=== PATIENT | male | born 1955 | race Caucasian/White ===

== ENCOUNTER 2021-02-17 10:29 | Outpatient (REF) | payer OTHER, SELFPAY ==
[2021-02-17 14:59] LABS: Influenza A PCR NEGATIVE (Negative); Influenza B PCR NEGATIVE (Negative); Resp Syncy Virus RNA Qual PCR NEGATIVE (Negative); SARS COV2 PCR INHOUSE POSITIVE (Negative)
== END 2021-02-17 10:30 | disposition home or self-care (01) ==
LOC: HO.LAB 10:29
PROVIDERS: Visit Provider Family Medicine
DX: Z20.822 Contact with and (suspected) exposure to COVID-19 (principal)
CPT/HCPCS: 0241U

== ENCOUNTER 2021-10-16 07:14 | Outpatient (REF) | payer OTHER, SELFPAY ==
[2021-10-16 07:56] LABS: Hemoglobin 14.4 g/dl (14.0-18.0); Mean Corpuscular HGB Conc 33.5 g/dl (31.0-36.0); Mean Corpuscular Hemoglobin 28.4 pg (27.0-33.0); Mean Corpuscular Volume 84.8 fL (80.0-98.0); Mean Platelet Volume 9.1 fL (9.4-12.4); Platelet Count 262 X10*3/uL (160-400); Red Blood Count 5.07 X10*6/uL (4.60-5.80); Red Cell Distribution Width 12.8 % (11.0-16.0); White Blood Count 6.8 X10*3/uL (4.8-10.8)
[2021-10-16 08:05] LABS: Estimated Average Glucose 111 mg/dL; Hemoglobin A1C 141.4243 umol/L; Hemoglobin A1c % 5.5 %
[2021-10-16 08:29] LABS: Alanine Aminotransferase 19 U/L (0-40); Albumin Level 4.3 g/dL (3.5-5.0); Alkaline Phosphatase 57 U/L (39-117); Anion Gap 13 (12-20); Aspartate Amino Transferase 21 U/L (5-37); Blood Urea Nitrogen 19 mg/dL (9-16); Calcium 9.6 mg/dL (8.4-10.2); Carbon Dioxide 30 mmol/L (22-29); Chloride 104 mmol/L (96-108); Cholesterol 185 mg/dL; Estimated Glomerular Filt Rate > 60; Glucose Fasting 100 mg/dL (60-99); HDL Cholesterol 58 mg/dL; Iron 138 mcg/dL (45-160); LDL Cholesterol Calculated 110 mg/dl; Percent Iron Saturation 36 % (15-50); Potassium 4.9 mmol/L (3.3-5.1); Sodium 142 mmol/L (135-145); Total Iron Binding Capacity 382 mcg/dL (228-428); Total Protein 7.1 g/dL (6.5-8.0); Triglycerides 87 mg/dL; Unsaturated Iron Binding 244 ug/dL
== END 2021-10-16 07:15 | disposition home or self-care (01) ==
LOC: HO.LAB 07:14
PROVIDERS: PCP Physician Assistant; Visit Provider Physician Assistant
DX: Z12.5 Encounter for screening for malignant neoplasm of prostate (principal); E78.5 Hyperlipidemia, unspecified; D50.9 Iron deficiency anemia, unspecified; K62.5 Hemorrhage of anus and rectum
CPT/HCPCS: 36415; 80053; 80061; 83036; 83540; 84153; 84443; 85027

== ENCOUNTER 2022-10-14 08:41 | Outpatient (REF) | payer BC, SELFPAY ==
[2022-10-14 11:27] LABS: Hematocrit 41.3 % (42.0-52.0); Hemoglobin 13.8 g/dl (14.0-18.0); Mean Corpuscular HGB Conc 33.4 g/dl (31.0-36.0); Mean Corpuscular Hemoglobin 28.9 pg (27.0-33.0); Mean Corpuscular Volume 86.6 fL (80.0-98.0); Mean Platelet Volume 9.4 fL (9.4-12.4); Platelet Count 279 X10*3/uL (160-400); Red Blood Count 4.77 X10*6/uL (4.60-5.80); White Blood Count 4.2 X10*3/uL (4.8-10.8)
[2022-10-14 12:27] LABS: Prostate Specific Antigen Scr 0.96 ng/mL (<0.05-4.0)
[2022-10-14 13:21] LABS: Alanine Aminotransferase 17 U/L (0-40); Alkaline Phosphatase 52 U/L (39-117); Anion Gap 11 (12-20); Aspartate Amino Transferase 21 U/L (5-37); Bilirubin Total 0.6 mg/dL (0.0-1.0); Blood Urea Nitrogen 19 mg/dL (9-16); Calcium 9.6 mg/dL (8.4-10.2); Carbon Dioxide 28 mmol/L (22-29); Chloride 104 mmol/L (96-108); Cholesterol 226 mg/dL (<200); Estimated Glomerular Filt Rate > 60; Glucose Fasting 97 mg/dL (60-99); HDL Cholesterol 67 mg/dL (>40); LDL Cholesterol Calculated 150 mg/dL (<100); Potassium 4.2 mmol/L (3.3-5.1); Sodium 139 mmol/L (135-145); Total Protein 6.7 g/dL (6.5-8.0); Triglycerides 49 mg/dL (<150)
== END 2022-10-14 08:42 | disposition home or self-care (01) ==
LOC: HO.WFDLDS 08:41
PROVIDERS: Visit Provider Physician Assistant
DX: Z12.5 Encounter for screening for malignant neoplasm of prostate (principal); E78.2 Mixed hyperlipidemia
CPT/HCPCS: 36415; 80053; 80061; 84153; 85027

== ENCOUNTER 2023-07-11 14:06 | Outpatient (AMB) | payer BC, SELFPAY ==
--- NOTE | 2023-07-11 14:17 | MHC.OFFVIS ---
Intake Visit Reasons: STREET [employer] Claudication s/p arterial US Intake Note: STREET [employer]/ PCP referral for PAD, pt states that he only has pain w/ excessive incline such as 4 flights of stairs. No issues w/ ambulation. States he has a pinched nerve in his right thigh that comes and goes over the years. Accompanied by: Self / Same As Patient Allergies No Known Allergies Allergy (Verified 07/11/23 14:33) HPI HPI STREET [employer] Claudication s/p arterial US: Details: Very pleasant 67-year-old gentleman presents for evaluation regarding peripheral vascular disease. He was actually seen by his insurance company and they did what appears to be a spot ONEIDA and on the right side came back at 0.88 became concerned. He was subsequently seen by his primary care and referred to us. Upon discussion with him he has a nonsmoker nondiabetic. He is being maintained on a low-dose statin. Of note he is able to walk several blocks with no difficulty able to climb several flights of stairs with no issues. He actively works in [employer] and has quite a hectic job. He has no difficulty performing any of these activities. Now presents to us for vascular evaluation. 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 Cognitive needs: No Hearing needs: No Vision needs: No Review of Systems Const All systems reviewed & are unremarkable except as noted in HPI and below Reports no additional complaints ENT Reports Normal hearing present Card Denies chest pain, Denies chest pain at rest, Denies chest pain with activity and Denies pedal edema Resp Denies cough GI Denies abdominal pain Musc Denies abnormal gait, Denies muscle cramps and Denies radiating pain into limb Skin/Breast Denies skin ulcer and Denies wounds Neuro Reports Normal hearing present and Denies abnormal gait Psych Reports no additional complaints Physical Exam Const General: cooperative, healthy appearing and comfortable Orientation/consciousness: oriented to person, oriented to place and oriented to time HEENT Head: Yes normal to inspection Neck Neck: Yes normal visual inspection Carotids: no bruits Chest Chest palpation & inspection: normal inspection of the chest Resp Effort & Inspection: normal respiratory effort and able to speak in complete sentences Auscultation: clear to auscultation bilaterally, no crackles, no rales, no rhonchi and no wheezes Cardio Other: Bilateral palpable dorsalis pedis pulses Rate: regular rate Rhythm: regular rhythm Heart sounds: S1 normal heart sound present and S2 normal heart sound present Bruits: no carotid bruits Peripheral pulses: Peripheral pulses 2+ throughout GI Inspection: Yes normal to inspection Skin Wounds: no wounds Hair: normal Neuro General: oriented to person, oriented to place and oriented to time Cranial nerves: Yes CN's II-XII intact bilaterally and Yes Normal hearing present Cognition (Neuro): normal cognition Motor exam (neuro): 5/5 motor strength present throughout Extrem Other: venous exam: No significant superficial varicosities or spider telangiectasias, minimal edema General: No clubbing, No cyanosis and No edema Psych Appearance: grossly normal Mental Status: mental status grossly normal Speech and movement: Normal speech and movement present Results Reviewed Results Reviewed: Written report from a spot ONEIDA noted to be on the right of 0.88 and on the left of 1.13 this was done on 02/28/2023. Assessment & Plan Assessment & Plan (1) PAD (peripheral artery disease): Code(s): I73.9 - Peripheral vascular disease, unspecified Category: Medical Plan: In short, I do not believe this patient has peripheral vascular disease. He has bounding palpable pulses. I do believe the right ONEIDA was a bit of an over read. In addition he has no clinical symptomatology. I did discuss risk factor modification that being said he is actually fairly healthy active nonsmoker nondiabetic. We did discuss the pathophysiology of peripheral vascular disease. I do not think that this will be something he needs to worry about. Can follow up with us on an as-needed basis. Thank you for allowing us to participate in the care of this very nice gentleman. Coding Level of Care Code New Pt Level 4 (50840) Diagnoses PAD (peripheral artery disease) I73.9
== END 2023-07-11 14:50 | disposition home or self-care (01) ==
PROVIDERS: PCP Physician Assistant; Visit Provider Surgery Vascular Surgery
DX: I73.9 Peripheral vascular disease, unspecified (principal)
CPT/HCPCS: 99203

== ENCOUNTER → 2023-07-11 14:06 | Outpatient (BNVA) | payer BC, SELFPAY | PROVIDERS: PCP Physician Assistant; Visit Provider Surgery Vascular Surgery ==

== ENCOUNTER 2023-08-16 10:56 | Outpatient (AMB) | payer BC, SELFPAY ==
[2023-08-16 11:14] VITALS: BP 100/62; PULSE 82; O2SAT 98; BMI 23.1
--- NOTE | 2023-08-16 11:14 | MHC.PC.OV ---
Vital Signs 08/16/23 11:14 Height 5 ft 8 in Weight 152 lb 2 oz BMI 23.1 BP 100/62 Blood Pressure Location Lt brachial Position Sitting Pulse 82 Pulse Source Pulse Oximeter Pulse Oximetry (%) 98 Oxygen Delivery Method Room Air Intake Visit Reasons: PE Intake Note: Patient is here today for a physical. 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 Required: No Accompanied by: Self / Same As Patient Allergies No Known Allergies Allergy (Verified 08/16/23 11:32) Medication List - Last Reconciled 08/16/23 by Alec Driscoll PA-C atorvastatin 20 mg PO DAILY 90 days trazodone 25 mg (1/2 x 50 mg) PO DAILY 90 days Tobacco use date assessed: 08/16/23 Fall risk assessment: No Falls in past year Last assessed Fall Risk: 08/16/23 Dental Screening Dental Screen Date: 08/16/23 Did you have a dental visit in the last 12 months?: Yes Did you have a dental problem in the last 6 months where you did not have access to dental care?: No Was dental information given to patient?: Patient has dentist HPI PE HPI Details Patient is a 67-year-old male here today for routine annual physical. Patient has a past medical history significant for hyperlipidemia, .. HLD: He is stopped using atorvastatin, no particular reason for this.. No recent lipid panel. Most recent fasting lipid panel was much improved from previous. Of note patient does have family history of early coronary artery disease. .. Cervical spine decreased ROM> He has had decreased cervical range of motion for many months now and is not too concerned as he does have much pain. Has been to a chiropractor who has worked on his neck though did not feel much improvement. He is now willing to try physical therapy and get an x-ray. .. There was some concern about peripheral artery disease thus was seen by vascular surgeon Vaccines: Up-to-date with COVID vaccine, up-to-date with tetanus vaccine. Up-to-date with shingles vaccine, need PCV-20 . 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 1. Little interest or pleasure in doing things: not at all 2. Feeling down, depressed, or hopeless: not at all 3. Trouble falling or staying asleep, or sleeping too much: not at all 4. Feeling tired or having little energy: not at all 5. Poor appetite or overeating: not at all 6. Feeling bad about yourself - or that you are a failure or have let yourself or your family down: not at all 7. Trouble concentrating on things, such as reading the newspaper or watching television: not at all 8. Moving or speaking so slowly that other people could have noticed. Or the opposite - being so fidgety or restless that you have been moving around a lot more than usual: not at all 9. Thoughts that you would be better off or of hurting yourself in some way: not at all Total score: 0 Depression Screening Interpretation: Negative Depression Screening Done: Yes 94590 - PHQ-9 Billing: Yes Source: Developed by Drs. Javier Miller, Mary Cruz, Darian Silva and colleagues, with an educational domitila from [employer]. Thrive Questionnaire Date Thrive assessed: 08/16/23 I am a: Patient What is your living situation today?: I have a steady place to live Within the past 12 months, did the food you bought not last and you didn't have the money to get more?: Never true Within the past 12 months, did you worry whether your food would run out before you got money to buy more?: Never true Do you have trouble paying for medicines?: No Do you have trouble getting transportation to medical appointments?: No Do you have trouble paying your heating and electricity bill?: No Do you have trouble taking care of your child, family member or friend?: No Do you have trouble with day-to-day activities such as bathing, preparing meals, shopping, managing finances, etc.?: No Are you currently unemployed and looking for a job?: No Are you interested in more education?: No Please select the resources that you would like help with: None Currently or been in a relationship where the following occur: no concerns reported THRIVE Score: 0 AUDIT C Alcohol Use Questionnaire (AUDIT-C) 1. How often do you have a drink containing alcohol?: Monthly or less 2. How many drinks containing alcohol do you have on a typical day when you are drinking?: 1 or 2 3. How often do you have six or more drinks on one occasion?: Never Total Score: 1 PERNELL-7 AMB Questionnaire PERNELL-7 Date PERNELL - 7 assessed: 08/16/23 Feeling nervous, anxious, or on edge: 0 = Not at all Not being able to stop or control worryin = Not at all Worrying too much about different things: 0 = Not at all Trouble relaxin = Not at all Being so restless that it is hard to sit still: 0 = Not at all Becoming easily annoyed or irritable: 0 = Not at all Feeling afraid as if something awful might happen: 0 = Not at all Total PERNELL-7 score (0-4 normal; 5-9 mild; 10-14 moderate; 15-21 severe): 0 Source: Developed by Drs. Javier Miller, Mary Cruz, Darian Silva and colleagues, with an educational domitila from [employer]. PERNELL-7 Assessment Billing PERNELL-7 Assessment Tool: PERNELL-7 Assessment 04810 Review of Systems Const Denies body aches, Denies chills, Denies excessive sweating, Denies fatigue, Denies fever(s) and Denies headache(s) Eyes Denies blurry vision ENT Denies dysphagia, Denies vertigo, Denies dizziness, Denies headache(s), Denies hearing loss and Denies tinnitus Card Denies chest pain, Denies chest pain with activity, Denies syncope, Denies irregular heart rhythm and Denies dyspnea Resp Denies chest congestion, Denies cough, Denies hemoptysis, Denies dyspnea and Denies wheezing GI Denies abdominal pain, Denies melena, Denies hematochezia, Denies coffee ground emesis, Denies dysphagia, Denies diarrhea, Denies nausea and Denies vomiting Denies difficulty urinating, Denies dysuria, Denies urinary frequency, Denies urinary hesitancy and Denies urinary urgency Musc Denies arthralgias, Denies limited range of motion, Denies muscle cramps and Denies muscle weakness Skin/Breast Denies rash and Denies skin ulcer Neuro Denies Abnormal speech present, Denies confusion, Denies vertigo, Denies dizziness, Denies syncope, Denies headache(s), Denies memory loss and Denies seizure-like activity Psych Denies anxiety, Denies confusion, Denies depression, Denies memory loss, Denies panic attacks and Denies paranoia Endo Denies excessive sweating, Denies fatigue, Denies flushing, Denies polydipsia and Denies polyuria Aller/Immun Denies wheezing Physical exam (Primary Care) Vital Signs: Last Vital Signs Pulse 82 08/16/23 11:14 BP 100/62 08/16/23 11:14 Pulse Ox 98 08/16/23 11:14 Oxygen Delivery Method Room Air 08/16/23 11:14 BMI result Body Mass Index 23.1 Tobacco/Smoking Status: Tobacco use Status Tobacco use date assessed 08/16/23 08/16/23 11:21 Patient Tobacco Use Status Former Tobacco user 08/16/23 11:38 Tobacco use type Cigar 08/16/23 11:38 e-Cigarette/Vaping Use Never Used 08/16/23 11:38 PHQ-9: PHQ-9 Score PHQ-9: Total score 0 08/16/23 11:33 Depression Screening Interpretation: Negative Thrive Assessment: Date of Thrive Assessment Date Thrive assessed 08/16/23 08/16/23 11:21 Currently or been in a relationship where the following occur: no concerns reported Const General: cooperative, comfortable, no acute distress, alert and awake; No confusion Orientation/consciousness: oriented to person, oriented to place, patient oriented x3 and No confusion HENMT Head: Yes normocephalic Ears: external ears normal and TM's normal bilaterally Face and sinus: No sinus tenderness Mouth: Normal oral and palatal mucosa present and tongue normal Teeth and gingiva: dentition normal and gingiva normal Throat: Yes posterior oropharynx normal, Yes tonsils normal and Yes uvula midline Eyes Conjunctivae: conjunctivae normal Sclerae: sclerae normal Pupils: Equal, round and reactive pupils present EOM: EOMs intact bilaterally Direct Ophthalmoscopy: No no photophobia Neck Neck: Yes no lymphadenopathy, No tender and Yes no JVD Thyroid: Thyroid normal Carotids: no bruits Chest Chest palpation & inspection: no tenderness Resp Effort & Inspection: normal respiratory effort, no audible wheezes, not labored and no stridor Auscultation: no crackles, no rales, no rhonchi and no wheezes Cardio Jugular venous distension: no JVD Rate: regular rate, not bradycardic and not tachycardic Rhythm: regular rhythm Bruits: no carotid bruits Peripheral pulses: Peripheral pulses 2+ throughout GI Inspection: Yes normal to inspection, No abdominal wall ecchymosis and No visible herniation Palpation (GI): Soft to palpation, nontender, no guarding, not rigid and No hepatosplenomegaly present Auscultation: normoactive bowel sounds General: Yes no CVA tenderness Back/Spine/Pelvis Back: no CVA tenderness and No back tenderness Cervical Spine: cervical ROM normal Thoracic/Lumbar Spine: thoracic and lumbar spine normal to inspection, straight leg raise negative bilaterally, No thoraco-lumbar ROM limited and No lumbar spinal tenderness Skin Lesions: no lesions Rashes: no rashes Wounds: no wounds Neuro General: oriented to person, oriented to place, patient oriented x3, CN's II-XI intact bilaterally and No confusion Cranial nerves: Yes Equal, round and reactive pupils present and Yes Normal accommodation reflex present Cognition (Neuro): normal cognition Speech: No Abnormal speech present Gait exam (Neuro): Normal gait present Motor exam (neuro): 5/5 motor strength present throughout Extrem Right upper extremity: full ROM; no cyanosis Left upper extremity: full ROM; no cyanosis Right lower extremity: no edema Left lower extremity: no edema Psych Appearance: grossly normal Mental Status: mental status grossly normal Affect: normal affect Attitude: cooperative Thought process: Normal thought process present Assessment and Plan Assessment & Plan (1) Annual physical exam: Code(s): Z00.00 - Encounter for general adult medical examination without abnormal findings (2) HLD (hyperlipidemia): Code(s): E78.5 - Hyperlipidemia, unspecified Qualifiers: Hyperlipidemia type: mixed hyperlipidemia Qualified Code(s): E78.2 - Mixed hyperlipidemia Plan: Has stopped using statin therapy for now particular reason, he would like to recheck his fasting lipids and if need for statin he will restart atorvastatin. Goal LDL to be below 130. (3) Colon cancer screening: Code(s): Z12.11 - Encounter for screening for malignant neoplasm of colon Plan: Willing to repeat colonoscopy (4) Cervical spine arthritis: Code(s): M47.812 - Spondylosis without myelopathy or radiculopathy, cervical region Plan: Patient seems to be having a cervical myelopathy. Has done chiropractics in the past though has not been effective. Now willing to get x-ray and do physical therapy which he will likely benefit from. Orders: Orders Comprehensive [place]. Panel Fast Today E78.2 - Mixed hyperlipidemia Complete Blood Count no Diff Today E78.2 - Mixed hyperlipidemia Prostate Specific Antigen Scr Today E78.2 - Mixed hyperlipidemia, Z12.5 - Encounter for screening for malignant neoplasm of prostate Lipid Panel Today E78.2 - Mixed hyperlipidemia PT Evaluation and Treatment Today M47.812 - Spondylosis without myelopathy or radiculopathy, cervical region XR cervical spine 4V Today M47.812 - Spondylosis without myelopathy or radiculopathy, cervical region Referrals Gastroenterology Referral Z12.11 - Encounter for screening for malignant neoplasm of colon Patient Instructions: Goal: LDL to be below 130 Barrier: Adherence to medication, physical activity and healthy eating habits. Coding Level of Care Code Est Pt Prev Care >65y(67836) Diagnoses Annual physical exam Z00.00 Mixed hyperlipidemia E78.2 Hyperlipidemia type: mixed hyperlipidemia Colon cancer screening Z12.11 Cervical spine arthritis M47.812 Additional Codes PERNELL-7 Assessment Billing - PERNELL-7 Assessment Tool: PERNELL-7 Assessment 23907 ([id number])
== END 2023-08-16 11:53 | disposition home or self-care (01) ==
PROVIDERS: PCP Physician Assistant; Visit Provider Physician Assistant
DX: Z00.00 Encounter for general adult medical examination without abnormal findings (principal); E78.2 Mixed hyperlipidemia; Z12.11 Encounter for screening for malignant neoplasm of colon; M47.812 Spondylosis without myelopathy or radiculopathy, cervical region
CPT/HCPCS: 99397

== ENCOUNTER 2023-08-29 07:46 | Outpatient (REF) | payer BC, SELFPAY ==
[2023-08-29 11:35] LABS: Hematocrit 42.3 % (42.0-52.0); Mean Corpuscular HGB Conc 33.1 g/dl (31.0-36.0); Mean Corpuscular Hemoglobin 28.8 pg (27.0-33.0); Mean Platelet Volume 9.6 fL (9.4-12.4); Platelet Count 292 X10*3/uL (160-400); Red Blood Count 4.86 X10*6/uL (4.60-5.80); Red Cell Distribution Width 12.9 % (11.0-16.0); White Blood Count 4.6 X10*3/uL (4.8-10.8)
[2023-08-29 11:54] LABS: Alanine Aminotransferase 15 U/L (0-40); Albumin Level 4.3 g/dL (3.5-5.0); Alkaline Phosphatase 49 U/L (39-117); Anion Gap 8 (12-20); Aspartate Amino Transferase 20 U/L (5-37); Bilirubin Total 0.5 mg/dL (0.0-1.0); Blood Urea Nitrogen 27 mg/dL (9-16); Calcium 9.6 mg/dL (8.4-10.2); Carbon Dioxide 31 mmol/L (22-29); Chloride 107 mmol/L (96-108); Cholesterol 245 mg/dL (<200); Estimated Glomerular Filt Rate > 60; Glucose Fasting 105 mg/dL (60-99); HDL Cholesterol 69 mg/dL (>40); LDL Cholesterol Calculated 165 mg/dL (<100); Potassium 4.4 mmol/L (3.3-5.1); Sodium 142 mmol/L (135-145); Total Protein 6.9 g/dL (6.5-8.0); Triglycerides 57 mg/dL (<150)
[2023-08-29 12:09] LABS: Prostate Specific Antigen Scr 1.13 ng/mL (<0.05-4.0)
== END 2023-08-29 07:47 | disposition home or self-care (01) ==
LOC: HO.WFDLDS 07:46
PROVIDERS: Visit Provider Physician Assistant
DX: E78.2 Mixed hyperlipidemia (principal); Z12.5 Encounter for screening for malignant neoplasm of prostate
CPT/HCPCS: 36415; 80053; 80061; 84153; 85027

== ENCOUNTER 2023-10-12 14:00 | Outpatient (RCR) | payer BC, SELFPAY ==
--- NOTE | 2023-09-21 13:09 | MHC.PT.EP ---
[facility] [place] Office [place] Office [place] Office [address] Sunni Del Valle [address] [phone] F: [phone] F: [phone] F: [phone] F: [phone] Physical Therapy Plan of Care Date of Evaluation: 09/21/23 Date of Surgery: Diagnosis: cervical/periscap muscle spasms Assessment: Pt is a 68yo male who was referred to PT for neck spasms with reduced ROM. PT exam reveals muscle imbalances including weakness of DNF and tightness of posterior paraspinals, poor thoracic extension/rotation ROM, significantly reduced sidebending AROM. Skilled PT indicated to address these impairments, teach him self-management to reduce and prevent symptoms at home with exercise program and improvement of postural awareness and body mechanics. Pt is motivated to participate and in agreement with POC. Frequency and Duration: The patient will be seen 1-2x/week, x 4 weeks Short Term Goals: 1. Pt will be I with daily cervical AROM, stretching, and isometric exercises in 2 weeks. 2. Pt will be able to achieve neutral cervicothoracic posture sitting unsupported in 2 weeks. Web Mobile Designer Goals: 1. Pt will report < 1 occurrence of muscle spasm in neck in 4 weeks. 2. DNF endurance WNL. 3. In 4 weeks, improve cervical side bending AROM 15 degrees L and R. Treatment Plan: Modalities to reduce pain, spasms and effusion. Manual therapy to restore motion and function. Therapeutic exercise to improve strength and flexibility. Neuromuscular re-education for posture and balance. Therapeutic activities to return to functional activities of daily living. Electronically signed by: Enedina Fernandez PT, DPT Please sign and return to therapist. Thank you for your referral.
== END 2024-03-15 09:32 | disposition home or self-care (01) ==
LOC: HO.PTWFD 14:00
PROVIDERS: PCP Physician Assistant; Visit Provider Physician Assistant
DX: M47.812 Spondylosis without myelopathy or radiculopathy, cervical region (principal)
CPT/HCPCS: 97110; 97140; 97161

== ENCOUNTER 2024-01-10 08:16 | Day surgery (SDC) | payer MEDICARE, SELFPAY ==
[2024-01-08 13:46] VITALS: BMI 23.5
--- NOTE | 2024-01-09 08:51 | P.CONAN_ITS ---
Documented by User: Renee Flood NP 01/09/24 08:51 HPI - Anesthesia Eval Consult details Narrative: 68yo M for Colonoscopy PMFSH Active Problems Active Problems: All Active Problems Colon cancer screening (Acute) PAD (peripheral artery disease) (Acute) Insomnia (Acute) Cervical spine arthritis (Acute) Annual physical exam (Acute) Rectal pain (Acute) Internal hemorrhoids (Acute) HLD (hyperlipidemia) (Acute) Bright red blood per rectum (Acute) Viral illness (Acute) Past Medical History Medical History Hyperlipidemia PAD (peripheral artery disease) Family History Family History Father Heart attack, Onset Age: 60 HLD (hyperlipidemia) Surgical History Surgical History Hx of shoulder surgery Hx of hand surgery H/O colonoscopy Social History Social History (Updated 01/08/24 @ 13:47 by Kandis Joy RN) Household Members: Spouse Housing: House Are you a primary healthcare risk control consultant to a significant other at home: No Alcohol intake: current Alcohol intake frequency: a few times a week Alcohol type: beer Patient Tobacco Use Status: Former Tobacco user Tobacco use type: Cigar e-Cigarette/Vaping Use: Never Used Use of substances other than those prescribed or required for medical reasons: No Have you been hit, kicked, punched, or otherwise hurt by someone within the past year? If so, by whom?: No Are you DNR?: No Advance Directives: No Advance Directives Information Provided: Yes Advance Directives on File: No Recently lost weight without trying: No Nutrition Risks: No Nutritional Risk service: No Current occupational status: employed Current occupation: [employer] work Cognitive needs: No Hearing needs: No Vision needs: No Meds Allergies Allergy/AdvReac Type Severity Reaction Status Date / Time No Known Allergies Allergy Verified 08/16/23 11:32 Exam Height,Weight and Vital Signs: Height 5 ft 7 in Weight 68.039 kg Assessment and Plan Assessment Anesthesia Assessment: Chart Reviewed Documented by User: Jose Cooper MD 01/10/24 08:54 PMF Past Medical History Medical History Hyperlipidemia PAD (peripheral artery disease) Family History Family History Father Heart attack, Onset Age: 60 HLD (hyperlipidemia) Family history of problems with anesthesia: No Surgical History Surgical History Hx of shoulder surgery Hx of hand surgery H/O colonoscopy History of Problems with Anesthesia: No Social History Social History (Updated 01/08/24 @ 13:47 by Kandis Joy RN) Household Members: Spouse Housing: House Are you a primary healthcare risk control consultant to a significant other at home: No Alcohol intake: current Alcohol intake frequency: a few times a week Alcohol type: beer Patient Tobacco Use Status: Former Tobacco user Tobacco use type: Cigar e-Cigarette/Vaping Use: Never Used Use of substances other than those prescribed or required for medical reasons: No Have you been hit, kicked, punched, or otherwise hurt by someone within the past year? If so, by whom?: No Are you DNR?: No Advance Directives: No Advance Directives Information Provided: Yes Advance Directives on File: No Recently lost weight without trying: No Nutrition Risks: No Nutritional Risk service: No Current occupational status: employed Current occupation: [employer] work Cognitive needs: No Hearing needs: No Vision needs: No Meds Allergies Allergy/AdvReac Type Severity Reaction Status Date / Time No Known Allergies Allergy Verified 08/16/23 11:32 Exam Airway Mallampati Class: II TM Dist: >3cm Neck ROM: Full Assessment and Plan Assessment Anesthesia Assessment: Anesthesia Plan Discussed Final Anesthetic Review Family History of Problems with Anesthesia: No History of Problems with Anesthesia: No NPO: Yes ASA Class: II Final Preanesthetic Review: No Changes in Pt Med Stat, Meds/Allgs Chart Re viewed, Consent Obtained/Reviewed and Anes Risks/Benef Reviewed Patient Risk: Low Procedure Risk: Low Anesthetic Plan Anesthetic Plan: TIVA Disposition: Standard PACU
[2024-01-10 08:26] VITALS: BMI 23.1
[2024-01-10 08:28] VITALS: BMI 23.1
[2024-01-10 09:07] VITALS: BP 150/69; PULSE 60; RESP 18; TEMP 36.3; O2SAT 99
[2024-01-10] MEDS: Lactated Ringers 1,000 ML 100 ML IVCONT (09:10)
[2024-01-10 10:31] VITALS: BP 100/50; PULSE 98; RESP 16; TEMP 36.3; O2SAT 98
--- NOTE | 2024-01-10 10:31 | PM.OP ---
Brief Operative Note Date of Service: 01/10/24 Pre-op diagnosis: Screening Post-op diagnosis: other (Diverticulosis) Procedure: Colonoscopy to the cecum and TI Surgeon: Javier Fuentes MD Anesthesia: MAC Was an Machine Sole Leveler used for this Procedure?: No Estimated blood loss (mL): 0 Pathology: none sent Condition: stable Disposition: PACU
[2024-01-10 10:46] VITALS: BP 104/68; PULSE 68; RESP 16; O2SAT 100
--- NOTE | 2024-01-10 10:54 | OP_ITS ---
DATE OF SERVICE: 01/10/2024 SURGEON: Javier Fuentes MD INDICATIONS: The patient presents for evaluation of colorectal cancer screening. Full consent was obtained from him for this, including risks of bleeding and perforation. PREOPERATIVE DIAGNOSIS: POSTOPERATIVE DIAGNOSIS: PROCEDURE PERFORMED: Colonoscopy to cecum and terminal ileum. ESTIMATED BLOOD LOSS: COMPLICATIONS: ANESTHESIA: Monitored anesthesia care. ASSISTANTS: SPECIMENS: PREOP DIAGNOSIS: Colorectal cancer screening. POSTOP DIAGNOSES: Colorectal cancer screening, mild sigmoid diverticulosis and small internal hemorrhoids. DESCRIPTION OF PROCEDURE: The patient was placed in the left lateral decubitus position. The digital rectal exam revealed no abnormalities. The Olympus video pediatric colonoscope was entered into the rectum and advanced easily to the cecum. Once in the cecum, I did identify normal-appearing cecal pouch with appendiceal orifice and a normal-appearing ileocecal valve. The terminal ileum was cannulated and appeared normal. The scope was withdrawn back in the colon. The entire cecum and ileocecal valve appeared normal. The scope was slowly withdrawn assessing all mucosal surfaces carefully. Preparation was excellent. I did not visualize any sign of polyps, colitis, nor angiodysplasia. There was a mild amount of sigmoid diverticulosis. In the rectum, scope was retroflexed visualizing internal hemorrhoids, but no other pathology. The rectal mucosa appeared normal. The scope was straightened and withdrawn from the patient. He tolerated the procedure well and was returned to recovery area in stable condition. IMPRESSION: 1. Mild diverticulosis. 2. Small internal hemorrhoids. PLAN: Given today's negative exam and negative family history, I would recommend a followup coloscopy in 10 years for further screening. He will otherwise see me on a p.r.n. basis. MD SLAVA Epperson/ROBI / [phone]
[2024-01-10 11:00] VITALS: BP 116/65; PULSE 60; RESP 18; TEMP 36.4; O2SAT 100
== END 2024-01-10 11:26 | disposition home or self-care (01) ==
PROVIDERS: Visit Provider Internal Medicine
PROC: 0DJD8ZZ Inspection of Lower Intestinal Tract, Via Natural or Artificial Opening Endoscopic (ICD-10-PCS; CPT 45378; principal; 2024-01-10 09:30)
DX: Z12.11 Encounter for screening for malignant neoplasm of colon (principal); K57.30 Diverticulosis of large intestine without perforation or abscess without bleeding; K64.8 Other hemorrhoids; I73.9 Peripheral vascular disease, unspecified; E78.5 Hyperlipidemia, unspecified; Z79.899 Other long term (current) drug therapy; Z87.891 Personal history of nicotine dependence; Z98.890 Other specified postprocedural states
CPT/HCPCS: G0105; J2003; J2704

== ENCOUNTER 2024-08-19 11:19 | Outpatient (AMB) | payer BC, SELFPAY ==
--- NOTE | 2024-08-19 11:21 | MHC.PC.OV ---
Vital Signs 08/19/24 11:23 Height 5 ft 7 in Weight 149 lb BMI 23.3 BP 126/76 Blood Pressure Location Lt brachial Position Sitting Pulse 78 Pulse Source Pulse Oximeter Temp 97.5 F Temp Source Temporal Artery Scan Pulse Oximetry (%) 98 Oxygen Delivery Method Room Air Intake Visit Reasons: PE District Branch Manager Required: No Accompanied by: Self / Same As Patient Allergies No Known Allergies Allergy (Verified 08/19/24 11:43) Medication List - Last Reconciled 08/19/24 by Alec Driscoll PA-C atorvastatin 20 mg PO DAILY 90 days Tobacco use date assessed: 08/19/24 Fall risk assessment: No Falls in past year Last assessed Fall Risk: 08/19/24 Dental Screening Dental Screen Date: 08/19/24 Did you have a dental visit in the last 12 months?: Yes Did you have a dental problem in the last 6 months where you did not have access to dental care?: No Was dental information given to patient?: Patient has dentist HPI PE HPI Details Patient is a 68-year-old male here today for routine annual physical. Patient has a past medical history significant for hyperlipidemia, .. HLD: He continues with consistent use of atorvastatin 20 mg Most recent fasting lipid panel was much improved from previous. Of note patient does have family history of early coronary artery disease. .. Memory impairment: Patient has had memory issues a large portion of his life. He has not ever been able to retain information. He is not interested in workup at this time for dementia as he has been able to manage by using memory techniques .. Cervical spine decreased ROM> has had localized left-sided posterior neck pain over the past several years. No significant trauma though did off a ladder recently which may have injured his neck He has done physical therapy and chiropractics for his neck which did not significantly increase his range of motion will reduce his pain. Currently his symptoms of localized left-sided neck pain has improved and he is open to the idea of getting an x-ray of his neck to evaluate for any arthritis. .. Vaccines: Up-to-date with COVID vaccine, up-to-date with tetanus vaccine. Up-to-date with shingles vaccine, needs PCV-20 . Colorectal cancer screen: Colonoscopy done in 2023, no polyps found, repeat 10 years Laboratory Tests 10/14/22 08:42 Creatinine 0.89 Cholesterol 226 H LDL Cholesterol, C alc 150 H [facility] Medical History Hyperlipidemia PAD (peripheral artery disease) Surgical History Hx of shoulder surgery Hx of hand surgery H/O colonoscopy Family History Father Heart attack, Onset Age: 60 HLD (hyperlipidemia) Social History (Updated 08/19/24 @ 11:48 by Alec Driscoll PA-C) Household Members: Spouse Housing: House Are you a primary animal care specialist to a significant other at home: No Alcohol intake: current Alcohol intake frequency: a few times a week Alcohol type: beer Patient Tobacco Use Status: Former Tobacco user Tobacco use type: Cigar e-Cigarette/Vaping Use: Never Used service: No Current occupational status: employed 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 1. Little interest or pleasure in doing things: not at all 2. Feeling down, depressed, or hopeless: not at all 3. Trouble falling or staying asleep, or sleeping too much: several days 4. Feeling tired or having little energy: several days 5. Poor appetite or overeating: not at all 6. Feeling bad about yourself - or that you are a failure or have let yourself or your family down: not at all 7. Trouble concentrating on things, such as reading the newspaper or watching television: not at all 8. Moving or speaking so slowly that other people could have noticed. Or the opposite - being so fidgety or restless that you have been moving around a lot more than usual: not at all 9. Thoughts that you would be better off or of hurting yourself in some way: not at all Total score: 2 19635 - PHQ-9 Billing: Yes Source: Developed by Drs. Javier Miller, Mary Cruz, Darian Silva and colleagues, with an educational domitila from [employer]. Thrive Questionnaire Date Thrive assessed: 08/19/24 I am a: Patient What is your living situation today?: I have a steady place to live Within the past 12 months, did the food you bought not last and you didn't have the money to get more?: Never true Within the past 12 months, did you worry whether your food would run out before you got money to buy more?: Never true Do you have trouble paying for medicines?: No Do you have trouble getting transportation to medical appointments?: No Do you have trouble paying your heating and electricity bill?: No Do you have trouble taking care of your child, family member or friend?: No Do you have trouble with day-to-day activities such as bathing, preparing meals, shopping, managing finances, etc.?: No Are you currently unemployed and looking for a job?: No Are you interested in more education?: No Please select the resources that you would like help with: None Currently or been in a relationship where the following occur: No concerns reported THRIVE Score: 0 AUDIT C Alcohol Use Questionnaire (AUDIT-C) 1. How often do you have a drink containing alcohol?: 2-4 times a month 2. How many drinks containing alcohol do you have on a typical day when you are drinking?: 1 or 2 3. How often do you have six or more drinks on one occasion?: Never Total Score: 2 PERNELL-7 AMB Questionnaire PERNELL-7 Date PERNELL - 7 assessed: 08/19/24 Feeling nervous, anxious, or on edge: 0 = Not at all Not being able to stop or control worryin = Not at all Worrying too much about different things: 0 = Not at all Trouble relaxin = Not at all Being so restless that it is hard to sit still: 1 = Several days Becoming easily annoyed or irritable: 1 = Several days Feeling afraid as if something awful might happen: 0 = Not at all Total PERNELL-7 score (0-4 normal; 5-9 mild; 10-14 moderate; 15-21 severe): 2 Source: Developed by Drs. Javier Miller, Mary Cruz, Darian Silva and colleagues, with an educational domitila from [employer]. PERNELL-7 Assessment Billing PERNELL-7 Assessment Tool: PERNELL-7 Assessment 64431 Review of Systems Const Denies body aches, Denies chills, Denies excessive sweating, Denies fatigue, Denies fever(s) and Denies headache(s) Eyes Denies blurry vision ENT Denies dysphagia, Denies vertigo, Denies dizziness, Denies headache(s), Denies hearing loss and Denies tinnitus Card Denies chest pain, Denies chest pain with activity, Denies syncope, Denies irregular heart rhythm and Denies dyspnea Resp Denies chest congestion, Denies cough, Denies hemoptysis, Denies dyspnea and Denies wheezing GI Denies abdominal pain, Denies melena, Denies hematochezia, Denies coffee ground emesis, Denies dysphagia, Denies diarrhea, Denies nausea and Denies vomiting Denies difficulty urinating, Denies dysuria, Denies urinary frequency, Denies urinary hesitancy and Denies urinary urgency Musc Denies arthralgias, Denies limited range of motion, Denies muscle cramps and Denies muscle weakness Skin/Breast Denies rash and Denies skin ulcer Neuro Denies Abnormal speech present, Denies confusion, Denies vertigo, Denies dizziness, Denies syncope, Denies headache(s), Denies memory loss and Denies seizure-like activity Psych Denies anxiety, Denies confusion, Denies depression, Denies memory loss, Denies panic attacks and Denies paranoia Endo Denies excessive sweating, Denies fatigue, Denies flushing, Denies polydipsia and Denies polyuria Aller/Immun Denies wheezing Physical exam (Primary Care) Vital Signs: Last Vital Signs Temp 97.5 F 08/19/24 11:23 Pulse 78 08/19/24 11:23 BP 126/76 08/19/24 11:23 Pulse Ox 98 08/19/24 11:23 Oxygen Delivery Method Room Air 08/19/24 11:23 BMI result Body Mass Index 23.3 Tobacco/Smoking Status: Tobacco use Status Tobacco use date assessed 08/19/24 08/19/24 11:31 Patient Tobacco Use Status Former Tobacco user 08/19/24 11:48 Tobacco use type Cigar 08/19/24 11:48 e-Cigarette/Vaping Use Never Used 08/19/24 11:48 PHQ-9: PHQ-9 Score PHQ-9: Total score 2 08/19/24 12:10 Thrive Assessment: Date of Thrive Assessment Date Thrive assessed 08/19/24 08/19/24 11:26 Currently or been in a relationship where the following occur: No concerns reported Const General: cooperative, comfortable, no acute distress, alert and awake; No confusion Orientation/consciousness: oriented to person, oriented to place, patient oriented x3 and No confusion HENKY Head: Yes normocephalic Ears: external ears normal and TM's normal bilaterally Face and sinus: No sinus tenderness Mouth: Normal oral and palatal mucosa present and tongue normal Teeth and gingiva: dentition normal and gingiva normal Throat: Yes posterior oropharynx normal, Yes tonsils normal and Yes uvula midline Eyes Conjunctivae: conjunctivae normal Sclerae: sclerae normal Pupils: Equal, round and reactive pupils present EOM: EOMs intact bilaterally Direct Ophthalmoscopy: No no photophobia Neck Neck: Yes no lymphadenopathy, No tender and Yes no JVD Thyroid: Thyroid normal Carotids: no bruits Chest Chest palpation & inspection: no tenderness Resp Effort & Inspection: normal respiratory effort, no audible wheezes, not labored and no stridor Auscultation: no crackles, no rales, no rhonchi and no wheezes Cardio Jugular venous distension: no JVD Rate: regular rate, not bradycardic and not tachycardic Rhythm: regular rhythm Bruits: no carotid bruits Peripheral pulses: Peripheral pulses 2+ throughout GI Inspection: Yes normal to inspection, No abdominal wall ecchymosis and No visible herniation Palpation (GI): Soft to palpation, nontender, no guarding, not rigid and No hepatosplenomegaly present Auscultation: normoactive bowel sounds General: Yes no CVA tenderness Back/Spine/Pelvis Back: no CVA tenderness and No back tenderness Cervical Spine: cervical ROM normal Thoracic/Lumbar Spine: thoracic and lumbar spine normal to inspection, straight leg raise negative bilaterally, No thoraco-lumbar ROM limited and No lumbar spinal tenderness Skin Lesions: no lesions Rashes: no rashes Wounds: no wounds Neuro General: oriented to person, oriented to place, patient oriented x3, CN's II-XI intact bilaterally and No confusion Cranial nerves: Yes Equal, round and reactive pupils present and Yes Normal accommodation reflex present Cognition (Neuro): normal cognition Speech: No Abnormal speech present Gait exam (Neuro): Normal gait present Motor exam (neuro): 5/5 motor strength present throughout Extrem Right upper extremity: full ROM; no cyanosis Left upper extremity: full ROM; no cyanosis Right lower extremity: no edema Left lower extremity: no edema Psych Appearance: grossly normal Mental Status: mental status grossly normal Affect: normal affect Attitude: cooperative Thought process: Normal thought process present Immunizations pneumoc 20-jean pierre conj-dip cr(PF) 0.5 mL IM syringe Performing Provider: Alec Driscoll PA-C [facility] Administered by: DARSHAN Turner on 08/19/24 12:14 Dose Route Admin Location Dispensed Lot Number Expiration Date [place] [employer] 0.5 mL IM Left Deltoid 0.5 mL [id number] 07/21/25 [employer] Total Dispensed Waste 0.5 mL 0 % VIS Given Date VIS Provided VIS Publication Date 08/19/24 Single Vaccine 24 Eligibility Eligibility Date Funding Source Not [facility] Eligible 08/19/24 Private Coding Level of Care Code Est Pt Prev Care >65y(24543) Diagnoses Annual physical exam Z00.00 Mixed hyperlipidemia E78.2 Hyperlipidemia type: mixed hyperlipidemia Cervical myofascial strain, subsequent encounter S16.1XXD Encounter type: subsequent encounter Additional Codes PERNELL-7 Assessment Billing - PERNELL-7 Assessment Tool: PERNELL-7 Assessment 85496 ([id number]) PHQ-9 - 32913 - PHQ-9 Billing: Yes ([id number]) Assessment & Plan Assessment & Plan (1) Annual physical exam: Code(s): Z00.00 - Encounter for general adult medical examination without abnormal findings Category: Medical Plan: as per HPI (2) HLD (hyperlipidemia): Code(s): E78.5 - Hyperlipidemia, unspecified Category: Medical Qualifiers: Hyperlipidemia type: mixed hyperlipidemia Qualified Code(s): E78.2 - Mixed hyperlipidemia Plan: Patient's most recent lipid panel showing elevated total cholesterol and LDL. He is now more consistent with the use of his atorvastatin 20 mg. Will recheck fasting lipid panel with goal LDL to be below 130. (3) Cervical myofascial strain: Code(s): S16.1XXA - Strain of muscle, fascia and tendon at neck level, initial encounter Category: Medical Qualifiers: Encounter type: subsequent encounter Qualified Code(s): S16.1XXD - Strain of muscle, fascia and tendon at neck level, subsequent encounter Plan: The patient reports cervicalgia localized to the left side of the neck, exacerbated by physical therapy and not relieved by healthcare recruiter. An x-ray has been ordered to further evaluate the condition, with the option for an MRI if symptoms persist. The patient is advised to monitor symptoms and consider pain management options if the condition worsens. Orders: Orders Complete Blood Count no Diff 08/19/24 E78.2 - Mixed hyperlipidemia XR cervical spine 4V 08/19/24 M47.812 - Spondylosis without myelopathy or radiculopathy, cervical region Pneumococcal 20 Immunization 08/19/24 Z23 - Encounter for immunization Comprehensive [place]. Panel Fast 08/19/24 E78.2 - Mixed hyperlipidemia Lipid Panel 08/19/24 E78.2 - Mixed hyperlipidemia Prostate Specific Antigen Scr 08/19/24 E78.2 - Mixed hyperlipidemia, Z12.5 - Encounter for screening for malignant neoplasm of prostate Medications: Refilled atorvastatin 20 mg PO DAILY 90 tabs 2RF 90 days E78.2 - Mixed hyperlipidemia
[2024-08-19 11:23] VITALS: BP 126/76; PULSE 78; TEMP 36.4; O2SAT 98; BMI 23.3
--- OUTSIDE RECORDS SUMMARY | 2024-08-19 12:12 | XMS_ITS | Patient Health Record ---
Author Organization [facility] Address [address] [place] [address] Care Team Providers Care Programmable Logic Controller Assembler Name Role Phone Alec Driscoll Primary Care Provider Unavailab Javier Cuadra Unavailable [phone] Allergies No Known Allergies Reason For Referral No Information Medications Medication SIG (Take, Route, Frequency, Duration) Notes Start Date End Date Status Atorvastatin Calcium 20 MG 1 tablet Oral Once a day Active Problems Problem Type SNOMED Code ICD Code Onset Dates Problem Status W/U Status Risk Notes Problem Colon cancer screening (362305218) Colon cancer screening (Z12.11) Active confirmed Problem Pre-procedure evaluation check (996173983) Encounter for other preprocedural examination (Z01.818) Active confirmed Problem Diverticular disease of colon (647566110) Diverticulosis of large intestine without perforation or abscess without bleeding (K57.30) Active confirmed Vital Signs Blood pressure diastolic 00 mm Hg 09/14/2023 Height 67 in 09/14/2023 Blood pressure systolic 00 mm Hg 09/14/2023 Weight 150 lbs 09/14/2023 BMI 23.49 kg/m2 09/14/2023 Encounters Encounter Location Date Provider Diagnosis [facility] [place] [address] [place], [place] [phone] 01/10/2024 Javier Fuentes Colon cancer screeni ng Z12.11 ; Diverticulosis of large intestine without perforation or abscess without bleeding K57.30 and Other hemorrhoids K64.8 [facility] [address] [place] [address] 09/14/2023 Javier Fuentes Colon cancer screeni ng Z12.11 and Encounter for other preprocedural examination Z01.818 Assessments Encounter Date Diagnosis (ICD Code) Assessment Notes Treatment Notes Treatment Clinical Notes Section Notes 01/10/2024 Colon cancer screening (ICD-10 - Z12.11) 01/10/2024 Diverticulosis of large intestine without perforation or abscess without bleeding (ICD-10 - K57.30) 09/14/2023 Colon cancer screening (ICD-10 - Z12.11) Overall, Hetal appears quite well. Given his age, excellent clinical appearance, and his last colonoscopy being over 10 years ago, I did recommend a followup colonoscopy for further screening purposes. We did review the rationale for that in regard to colon cancer prevention. Full consent was obtained for this, including risks of bleeding and perforation. The procedure will be done with monitored anesthesia care. Hetal was comfortable with this plan. Thank you again for allowing me to participate in Hetal's care. I shall continue to keep you advised of his progress. 09/14/2023 Encounter for other preprocedural examination (ICD-10 - Z01.818) Overall, Hetal appears quite well. Given his age, excellent clinical appearance, and his last colonoscopy being over 10 years ago, I did recommend a followup colonoscopy for further screening purposes. We did review the rationale for that in regard to colon cancer prevention. Full consent was obtained for this, including risks of bleeding and perforation. The procedure will be done with monitored anesthesia care. Hetal was comfortable with this plan. Thank you again for allowing me to participate in Hetal's care. I shall continue to keep you advised of his progress. 01/10/2024 Other hemorrhoids (ICD-10 - K64.8) Plan Of Treatment Future Test Test Name Order Date COLONOSCOPY 10/23/2012 COLONOSCOPY 09/14/2023 Insurance Providers Payer Name Payer Address Payer Phone Subscriber Number Group Number Insured Name Patient Relationship to Insured Coverage Start Date Coverage End Date [facility] [address] [place], [place] [id number] HETAL TAYLOR Self - patient is the insured Medical (General) History Medical History History ICD Code Denies [place],DM,CVA,Lung disease,renal dise ase Negative screening colonoscopy in 2012 Surgical History Surgery Date(Month/Year) hand surgery-right 1999 shoulder surgery 2001 finger -left index 1998
== END 2024-08-19 12:14 | disposition home or self-care (01) ==
LOC: HO.HMCH 11:19
PROVIDERS: PCP Physician Assistant; Visit Provider Physician Assistant
DX: Z00.00 Encounter for general adult medical examination without abnormal findings (principal); E78.2 Mixed hyperlipidemia; S16.1XXD Strain of muscle, fascia and tendon at neck level, subsequent encounter

== ENCOUNTER → 2024-08-19 11:19 | Outpatient (BNVA) | payer BC, SELFPAY | PROVIDERS: PCP Physician Assistant; Visit Provider Physician Assistant | DX: Z00.00 Encounter for general adult medical examination without abnormal findings (principal); Z23 Encounter for immunization; E78.2 Mixed hyperlipidemia; S16.1XXD Strain of muscle, fascia and tendon at neck level, subsequent encounter; M47.812 Spondylosis without myelopathy or radiculopathy, cervical region; Z87.891 Personal history of nicotine dependence | CPT/HCPCS: 90471; 90677; 96127 ==

== ENCOUNTER 2024-08-27 07:32 | Outpatient (REF) | payer BC, SELFPAY ==
--- OUTSIDE RECORDS SUMMARY | 2024-08-27 07:34 | XMS_ITS | Patient Health Record ---
Author Organization [facility] Address [address] [place] [address] Care Team Providers Care Reaming Press Operator Name Role Phone Alec Driscoll Primary Care Provider Unavailab Javier Cuadra Unavailable [phone] Allergies No Known Allergies Reason For Referral No Information Medications Medication SIG (Take, Route, Frequency, Duration) Notes Start Date End Date Status Atorvastatin Calcium 20 MG 1 tablet Oral Once a day Active Problems Problem Type SNOMED Code ICD Code Onset Dates Problem Status W/U Status Risk Notes Problem Colon cancer screening (060462249) Colon cancer screening (Z12.11) Active confirmed Problem Pre-procedure evaluation check (236331953) Encounter for other preprocedural examination (Z01.818) Active confirmed Problem Diverticular disease of colon (296889220) Diverticulosis of large intestine without perforation or abscess without bleeding (K57.30) Active confirmed Vital Signs Blood pressure diastolic 00 mm Hg 09/14/2023 Height 67 in 09/14/2023 Blood pressure systolic 00 mm Hg 09/14/2023 Weight 150 lbs 09/14/2023 BMI 23.49 kg/m2 09/14/2023 Encounters Encounter Location Date Provider Diagnosis [facility] [address] [place], [place] [phone] 01/10/2024 Javier Fuentes Colon cancer screeni ng Z12.11 ; Diverticulosis of large intestine without perforation or abscess without bleeding K57.30 and Other hemorrhoids K64.8 [facility] [address] [place] [address] 09/14/2023 Javier Fuentes Colon cancer screeni ng [...] Insured Coverage Start Date Coverage End Date [facility] [address] [place], [place] [phone] [id number] HETAL TAYLOR Self - patient is the insured Medical (General) History Medical History History ICD Code Denies [place],DM,CVA,Lung disease,renal dise ase Negative screening colonoscopy in 2012 Surgical History Surgery Date(Month/Year) hand surgery-right 1999 shoulder surgery 2001 finger -left index 1998
[2024-08-27 12:21] LABS: Hematocrit 41.8 % (42.0-52.0); Hemoglobin 13.7 g/dl (14.0-18.0); Mean Corpuscular HGB Conc 32.8 g/dl (31.0-36.0); Mean Corpuscular Hemoglobin 28.2 pg (27.0-33.0); Mean Corpuscular Volume 86.2 fL (80.0-98.0); NRBC Abs Auto 0.000 X10*3/uL (0.0-0.012); NRBC Pct Auto 0.0 /100WBC (0.0-0.2); Platelet Count 279 X10*3/uL (160-400); Red Blood Count 4.85 X10*6/uL (4.60-5.80); White Blood Count 4.5 X10*3/uL (4.8-10.8)
[2024-08-27 12:51] LABS: Alanine Aminotransferase 24 U/L (0-40); Albumin Level 4.3 g/dL (3.5-5.0); Alkaline Phosphatase 53 U/L (39-117); Anion Gap 9 (12-20); Aspartate Amino Transferase 29 U/L (5-37); Blood Urea Nitrogen 24 mg/dL (9-16); Calcium 9.4 mg/dL (8.4-10.2); Carbon Dioxide 29 mmol/L (22-29); Chloride 106 mmol/L (96-108); Cholesterol 162 mg/dL (<200); Estimated Glomerular Filt Rate > 60; HDL Cholesterol 63 mg/dL (>40); Potassium 4.4 mmol/L (3.3-5.1); Sodium 140 mmol/L (135-145); Total Protein 6.8 g/dL (6.5-8.0); Triglycerides 43 mg/dL (<150)
== END 2024-08-27 07:33 | disposition home or self-care (01) ==
LOC: HO.WFDLDS 07:32
PROVIDERS: Visit Provider Physician Assistant
DX: Z12.5 Encounter for screening for malignant neoplasm of prostate (principal); E78.2 Mixed hyperlipidemia
CPT/HCPCS: 36415; 80053; 80061; 84153; 85027